=== PATIENT | female | born 1990 | race Hispanic/Latino ===

== ENCOUNTER 2020-06-07 06:56 | Day surgery (SDC) | payer MEDICAID ==
[~2020-06-07] VITALS: Ht 157.5 cm; Wt 69.4 kg
[~2020-06-07 06:56] MED LIST: CALNA PO; DEPO-PROVER150 MG/ML IM; NO HOME MEDS
[2020-06-07 07:40] LABS: HCG SERUM/URINE (NEG/POS) NEGATIVE (NEGATIVE)
[2020-06-07 09:53] VITALS: BP 103/66
== END 2020-06-07 10:19 | disposition home or self-care (01) ==
LOC: ENDO 06:56 → ORM 08:45 → ENDO 08:45
PROVIDERS: ATTEND Surgery
DX: K63.5 Polyp of colon (principal); K64.8 Other hemorrhoids; Z11.59 Encounter for screening for other viral diseases